=== PATIENT | male | born 1950 | race Caucasian/White ===

== ENCOUNTER 2021-12-10 11:26 | Outpatient (CLI) | payer MEDICARE | END 2021-12-10 11:27 | disposition left against medical advice (07) | LOC: EMS 11:26 | DX: R41.0 Disorientation, unspecified (principal) ==

== ENCOUNTER 2021-12-10 12:27 | Emergency (ER) | payer MEDICARE ==
--- NOTE | 2021-12-10 13:02 | ED Physician Documentation ---
PD HPI ALTERED MENTAL STATUS - Stated complaint Stated Complaint: DISORIENTATION - Chief complaint Chief Complaint: Neuro - History obtained from History obtained from: Patient, Family - History of Present Illness Timing - onset: Today Timing - duration: Hours (3) Timing - details: Abrupt onset Quality / character: Confused Associated symptoms: No: Fever, Headache, Stiff neck, Dyspnea, Cough, NVD, Urinary sx, General weakness, Focal weakness, Seizure activity, Syncope Contributing factors: Diabetic. No: Anticoagulated Basline status: Alert and oriented X 3, Ambulatory, Independent Similar symptoms before: Has not had sx before Recently seen: Not recently seen - Additional information Additional information: 71-year-old male states that he felt confused today. He had trouble stating any real symptoms. He did not have word finding difficulties. He did not have speech difficulties. No numbness or tingling. No focal neurological deficits. His states that he seemed "slower to respond" than usual. They state that this started about 2 hours and 15 minutes prior to arrival. He is a type I diabetic. Blood sugar was normal upon arrival. He also has a history of hypothyroidism. No alcohol or drug use. No headache. No head injury. No vomiting. Review of Systems Constitutional: denies: Fever, Chills Nose: denies: Rhinorrhea / runny nose, Congestion Throat: denies: Sore throat Cardiac: denies: Chest pain / pressure Respiratory: denies: Cough GI: denies: Nausea, Vomiting, Diarrhea : denies: Dysuria Skin: denies: Rash Musculoskeletal: denies: Neck pain, Back pain Neurologic: denies: Focal weakness, Numbness, Headache, Head injury, LOC PD PAST MEDICAL HISTORY - Past Medical History Past Medical History: Yes Endocrine/Autoimmune: Type 1 diabetes, HyPOthyroidism - Past Surgical History Past Surgical History: Yes Other past surgical history: Pilonidal cyst - Allergies Allergies/Adverse Reactions: Allergies Allergy/AdvReac Type Severity Reaction Status Date / Time amoxicillin Allergy Unknown Verified 12/10/21 12:31 latex Allergy Unknown Verified 12/10/21 12:31 - Living Situation Living Situation: reports: With family Living Arrangement: reports: At home - Social History Does the pt smoke?: No Does the pt drink ETOH?: No Does the pt have substance abuse?: No - Family History Family history: reports: Non contributory PD ED PE NORMAL - Vitals Vital signs reviewed: Yes - General General: Alert and oriented X 3, No acute distress - HEENT HEENT: Atraumatic, PERRL, EOMI, Ears normal, Moist mucous membranes, Pharynx benign - Neck Neck: Supple, no meningeal sign - Cardiac Cardiac: RRR, Strong equal pulses - Respiratory Respiratory: No respiratory distress, Clear bilaterally - Abdomen Abdomen: Normal bowel sounds, Soft, Non tender, Non distended - Back Back: No spinal TTP - Derm Derm: Warm and dry - Extremities Extremities: Normal ROM s pain - Neuro Neuro: Alert and oriented X 3, stack clerk 2-12 intact, No motor deficit, No sensory deficit, Normal speech Eye Opening: Spontaneous Motor: Obeys Commands Verbal: Oriented GCS Score: 15 - Psych Psych: Normal mood, Normal affect NIHSS - Time Time: 13:00 - Level of Consciousness Level of consciousness: (0) Alert, Keenly responsive LOC Questions: (0) Answers both Q's correct LOC Commands: (0) Performs both correctly - Gaze Best Gaze: (0) Normal - Visual Visual: (0) No loss - Facial Palsy Facial Palsy: (0) Normal, symmetrical movement - Motor Arms (both separate) Motor Arm (right): (0) No drift Motor Arm (left): (0) No drift - Motor Legs (both separate) Motor Leg (right): (0) No drift Motor Leg (left): (0) No drift - Limb Ataxia Limb Ataxia: (0) Absent - Sensory Sensory: (0) Normal - Best Language Best Language: (0) No aphasia - Dysarthria Dysarthria: (0) Normal - Extinction and Inattention (formally neg Extinction and inattention: (0) No abnormality - Total Score/Results Total Score/Result: 0 Results - Vitals Vitals: Vital Signs - 24 hr 12/10/21 12/10/21 12/10/21 12:32 13:02 16:53 Temperature 36.7 C 36.9 C Heart Rate 71 70 74 Respiratory 18 16 18 Rate Blood Pressure 139/62 H 129/88 H 130/68 O2 Saturation 100 100 98 Oxygen O2 Source Room air - EKG (time done) 1243 Rate: Rate (enter#) (69) Rhythm: NSR [place]: Normal Intervals: Normal [place] QRS: Normal Ischemia: Normal ST segments - Labs Labs: Laboratory Tests 12/10/21 12/10/21 12/10/21 12:42 13:05 13:05 WBC 7.6 RBC 4.39 L Hgb 14.3 Hct 41.8 L MCV 95.2 H MCH 32.6 H MCHC 34.2 RDW 12.2 Plt Count 245 MPV 11.4 Neut # (Auto) 5.5 Lymph # (Auto) 1.4 L Giles # (Auto) 0.6 Eos # (Auto) 0.1 Baso # (Auto) 0.1 Absolute Nucleated RBC 0.00 Nucleated RBC % 0.0 Sodium 136 Potassium 4.1 Chloride 101 Carbon Dioxide 26 Anion Gap 9.0 BUN 13 Creatinine 1.0 Estimated GFR (MDRD) 74 L Glucose 161 H POC Whole Bld Glucose 136 H Calcium 9.0 Total Bilirubin 0.6 AST 21 ALT 19 Alkaline Phosphatase 59 Troponin I High Sens Total Protein 6.3 L Albumin 3.8 Globulin 2.5 Albumin/Globulin Ratio 1.5 Lipase 31 Urine Color Urine Clarity Urine pH Ur Specific [place] Urine Protein Urine Glucose (UA) Urine Ketones Urine Occult Blood Urine Nitrite Urine Bilirubin Urine Urobilinogen Ur Leukocyte Esterase Ur Microscopic Review Urine Culture Comments 12/10/21 12/10/21 13:05 15:08 WBC RBC Hgb Hct MCV MCH MCHC RDW Plt Count MPV Neut # (Auto) Lymph # (Auto) Giles # (Auto) Eos # (Auto) Baso # (Auto) Absolute Nucleated RBC Nucleated RBC % Sodium Potassium Chloride Carbon Dioxide Anion Gap BUN Creatinine Estimated GFR (MDRD) Glucose POC Whole Bld Glucose Calcium Total Bilirubin AST ALT Alkaline Phosphatase Troponin I High Sens 4.2 Total Protein Albumin Globulin Albumin/Globulin Ratio Lipase Urine Color YELLOW Urine Clarity CLEAR Urine pH 7.0 Ur Specific [place] 1.015 Urine Protein NEGATIVE Urine Glucose (UA) NEGATIVE Urine Ketones NEGATIVE Urine Occult Blood NEGATIVE Urine Nitrite NEGATIVE Urine Bilirubin NEGATIVE Urine Urobilinogen 0.2 (NORMAL) Ur Leukocyte Esterase NEGATIVE Ur Microscopic Review NOT INDICATED Urine Culture Comments NOT INDICATED - Rads (name of study) CT angiogram head Radiology: Final report received, EMP read contemporaneously, See rad report CT angiogram neck Radiology: Final report received, EMP read contemporaneously, See rad report Brain MRI Radiology: Final report received, EMP read contemporaneously, See rad report PD MEDICAL DECISION MAKING - ED course Complexity details: reviewed results, re-evaluated patient, considered d ifferential, d/w patient ED course: 71-year-old male presents to the emergency department with confusion earlier today. This is since resolved. Negative brain MRI, CT angiogram head and neck. No significant lab abnormalities. No other focal neurological deficits. Unclear etiology of his symptoms. Does not appear consistent with stroke at this time. Patient is well-appearing, nontoxic. Afebrile. Currently asymptomatic. We will have him follow-up with his doctor for further care. Patient counseled regarding signs and symptoms for which I believe and urgent r e-evaluation would be necessary. Patient with good understanding of and agreement to plan and is comfortable going home at this time This document was made in part using voice recognition software. While efforts are made to proofread this document, sound alike and grammatical errors may occur. Departure - Departure Disposition: 01 Home, Self Care Clinical Impression: Altered mental status Qualifiers: Altered mental status type: transient alteration of awareness Qualified Code(s): R40.4 - Transient alteration of awareness Condition: Good Instructions: ED Altered Loc Follow-Up: Syed Biggs MD [Primary Care Provider] - Within 1 week Comments: The cause of your symptoms is unclear today. Your angiograms of your head and neck along with the MRI of your brain did not show any evidence of strokes. Your blood work is unremarkable. Your urinalysis is clear. Please follow-up with your doctor for further care. Please return if you worsen. Discharge Date/Time: 12/10/21 16:55
[2021-12-10] MEDS ORDERED: IOPAMIDOL-300 100 ML VIAL ONE (13:12)
[2021-12-10 13:17] LABS: BASOPHILS # (AUTO) 0.1 10^3/uL (0.0-0.1); BASOPHILS % (AUTO) 0.7 %; EOSINOPHILS # (AUTO) 0.1 10^3/uL (0.0-0.7); EOSINOPHILS % (AUTO) 0.8 %; HCT - HEMATOCRIT 41.8 % (42.0-52.0); HGB - HEMOGLOBIN 14.3 g/dL (14.0-18.0); LYMPHOCYTES # (AUTO) 1.4 10^3/uL (1.5-3.5); LYMPHOCYTES % (AUTO) 18.2 %; MEAN CORPUSCULAR HEMOGLOBIN 32.6 pg (27.0-31.0); MEAN CORPUSCULAR HGB CONC 34.2 g/dL (32.0-36.0); MEAN CORPUSCULAR VOLUME 95.2 fL (80.0-94.0); MEAN PLATELET VOLUME 11.4 fL (7.4-11.4); MONOCYTES # (AUTO) 0.6 10^3/uL (0.0-1.0); MONOCYTES % (AUTO) 8.4 %; NEUTROPHILS # (AUTO) 5.5 10^3/uL (1.5-6.6); NEUTROPHILS % (AUTO) 71.5 %; PLT - PLATELET COUNT 245 10^3/uL (130-450); RED BLOOD COUNT 4.39 10^6/uL (4.70-6.10); RED CELL DISTRIBUTION WIDTH 12.2 % (12.0-15.0); WHITE BLOOD COUNT 7.6 x10^3/uL (4.8-10.8)
[2021-12-10 13:31] LABS: ALBUMIN 3.8 g/dL (3.2-5.5); ALBUMIN/GLOBULIN RATIO 1.5 (1.0-2.2); BILIRUBIN,TOTAL 0.6 mg/dL (0.2-1.0); POTASSIUM 4.1 mmol/L (3.5-5.0); TOTAL PROTEIN 6.3 g/dL (6.7-8.2)
--- NOTE | 2021-12-10 15:24 | MRI Report ---
PROCEDURE: Brain W/O INDICATIONS: confusion, this am TECHNIQUE: Noncontrast axial T1 spin echo, axial T2 fast spin echo, sagittal and axial FLAIR, coronal T2 fast sp in echo, axial gradient echo, axial diffusion and ADC through the brain. COMPARISON: None. FINDINGS: Image quality: Excellent. CSF Spaces: Basal cisterns are patent. No extra-axial fluid collections. Ventricles are normal in size and shape. Brain: Mild global cerebral volume loss. No intracranial masses or hemorrhage. Mehta/white matter int erface is normal. Brainstem appears normal. Diffusion-weighted images demonstrate no acute ischemic insult. No chronic ischemic insults. Normal intravascular flow voids are present. Skull and face: Calvarium has normal marrow signal. Orbits appear normal. Sinuses: Sinuses and mastoids are clear. IMPRESSION: No acute intracranial finding. Mild global cerebral volume loss. Reviewed by: Senthil Hooks MD on 12/10/2021 3:23 PM PDT Approved by: Senthil oHoks MD on 12/10/2021 3:23 PM PDT Station ID: [id number]
[2021-12-10 15:26] LABS: BILIRUBIN,URINE NEGATIVE (NEGATIVE); GLUCOSE, URINE (UA) NEGATIVE (NEGATIVE); KETONES,URINE (UA) NEGATIVE (NEGATIVE); LEUKOCYTE ESTERASE, URINE NEGATIVE (NEGATIVE); NITRITE,URINE NEGATIVE (NEGATIVE); OCCULT BLOOD,URINE NEGATIVE (NEGATIVE); PROTEIN,URINE NEGATIVE (NEGATIVE); UROBILINOGEN,URINE 0.2 (NORMAL) E.U./dL (NORMAL)
[2021-12-10 15:28] LABS: CLARITY,URINE CLEAR (CLEAR)
--- NOTE | 2021-12-10 15:42 | CT Report ---
PROCEDURE: ANGIO NECK W INDICATIONS: confusion, this am CONTRAST: IV CONTRAST: Isovue 300 ml: 100 PO CONTRAST: *NO PO CONTRAST TECHNIQUE: After the administration of intravenous contrast, 1.5 mm axial sections acquired from the aortic arch to the [place]. Coronal 3-D maximum intensity projection (MIP) and/or volume rendering ref ormats were then performed. For radiation dose reduction, the following was used: automated exposur e control, adjustment of mA and/or kV according to patient size. COMPARISON: Correlation is made with significantly head CT angiogram, 12/10/2021. FINDINGS: Image quality: Excellent. Carotid system: The great vessels demonstrate a conventional anatomy as they arise from the aortic a rch. The origins of the common carotid arteries appear patent. The common carotid arteries demonstr ate normal calibers and courses. The bifurcation regions appear normal bilaterally. No hematomas be significant stenosis of the internal carotid arteries can be seen. The internal carotid arteries are highly tortuous. Posterior circulation: The origins of the vertebral arteries appear patent. The mo re superior portions of the vertebral arteries demonstrate normal course and caliber. They join to f orm a normal appearing basilar artery. Soft tissues: Visualized neck soft tissues demonstrate no suspicious abnormalities. The thyroid is normal in size and there are no incidental findings. Bones: No suspicious bony lesions. Visualized cervical spine appears normally aligned. Degenerati ve changes are seen, which are worst involving the lower cervical spine, with mild disc space narrowi ng at C5-C6 and moderate to severe disc space narrowing at C6-C7. Posterior directed endplate osteoph ytes are seen at C6-C7. Bridging anterior osteophytes are seen C5-C7. Focal degenerative change can a lso be seen involving the C1-C2 interface anteriorly. IMPRESSION: No hemodynamically significant stenosis can be seen within the arteries of the neck. Incidental note is made of: Highly tortuous internal carotid arteries Focal lower cervical spine degenerative change The estimate of stenosis included in the report of the imaging study was calculated using the NASCET method Reviewed by: Manuel Rios MD on 12/10/2021 2:41 PM [place] Approved by: Manuel Rios MD on 12/10/2021 2:41 PM [place] Station ID: [id number]
--- NOTE | 2021-12-10 15:44 | CT Report ---
PROCEDURE: ANGIO HEAD W/WO INDICATIONS: confusion, this am CONTRAST: IV CONTRAST: Isovue 300 ml: 100 PO CONTRAST: *NO PO CONTRAST TECHNIQUE: Precontrast 4.5 mm thick angled axial sections acquired from the foramen magnum to the vertex. Afte r the administration of intravenous contrast, 1 mm thick sections acquired through the [place] is. Postcontrast 4.5 mm thick sections then re-acquired from the foramen magnum to the vertex. 3-di mensional fmfakri-odjikvxlo-dcuzokpoxs (MIP) and/or volume rendering reformats were acquired of the c entral intracranial vasculature. For radiation dose reduction, the following was used: automated ex posure control, adjustment of mA and/or kV according to patient size. COMPARISON: Correlation is made with the accompanying neck CT angiogram, 12/10/2021. FINDINGS: Image quality: Excellent. Anterior circulation: Intracranial internal carotid arteries are normal in size and flow. The flow within the paired anterior cerebral arteries is normal and symmetric. The flow within the middle cer ebral arteries is normal and symmetric. The anterior communicating artery is seen. No aneurysms are seen. Posterior circulation: Visualized portions of the vertebral arteries demonstrate normal caliber, and join to form a normal appearing basilar artery. Flow within the posterior cerebral arteries is norm al and symmetric. No aneurysms are seen. CSF spaces: Ventricles are normal in size and shape. Basal cisterns are patent. No extra-axial flu id collections. Brain: No midline shift. No intracranial bleeds or masses. Mehta-white matter interface appears int act. Skull and face: Calvarium and facial bones appear intact, without suspicious lesions. Sinuses: Visualized sinuses and mastoids are clear. IMPRESSION: No significant intracranial arterial abnormalities are seen. No intracranial hemorrhage is seen. No significant intracranial abnormality is seen. No masses or abnormal enhancement can be seen to the limits of CT. Reviewed by: Manuel Rios MD on 12/10/2021 2:43 PM [place] Approved by: Manuel Rios MD on 12/10/2021 2:43 PM AKAL[place] Station ID: [id number]
[2021-12-10] MEDS ORDERED: IOPAMIDOL-300 100 ML VIAL IVP ONE (16:17)
[2021-12-10 16:54] VITALS: BP 130/68
== END 2021-12-10 16:55 | disposition home or self-care (01) ==
LOC: ED 12:27
DX: R40.4 Transient alteration of awareness (principal)
CPT/HCPCS: 36415; 70496; 70498; 70551; 80053; 81003; 83690; 84484; 85025; 93005; 99283; 99284; Q9967; 81001; 87086